=== PATIENT | female | born 1970 ===

== ENCOUNTER 2016-12-10 13:42 | Emergency (ER) | payer OTHER ==
--- NOTE | 2016-12-10 14:25 | ED ---
Bite Injury/Animal - HPI Summary HPI Summary: 46 female presents with complaints of a dog bite to her upper left leg that occurred yesterday while she was out for a run. She does not know the kind of dog. She states the dog was in a neighbors yard and is their dog. She called the animal control about the incident and dog will be tested for rabies. she is not interested in rabies prophylaxis here today. She arrives because she was told by the school nurse to come have it checked out. She states the area is very sore, bruised and there were 2 puncture wounds from the dogs teeth that appeared to have closed. No active bleeding. Denies numbness/tingling, loss of ROM, fever/chills, discharge, redness or edema. No other complaints at this time. No significant PMHx. Has not taken any medication for this. - History of Current Complaint Chief Complaint: EDAnimalBite Stated Complaint: DOG BITE Time Seen by Provider: 12/10/16 14:21 Hx Obtained From: Patient Onset of Injury: Happened days ago Type of Bite: Animal - dog Hx of Bite: Unprovoked Has Animal Been Immunized?: Yes - from what she was told, in process of speaking with animal control and determining rabies status. Severity Initially: Mild Severity Currently: Mild Pain Intensity: 1 Pain Scale Used: 0-10 Numeric Character: Puncture - 2 Aggravating Factor(s): Nothing Alleviating Factor(s): Nothing Associated Signs And Symptoms: Positive: Negative Animal Available for Observation: Yes Animal Control Notified: Yes - Allergies/Home Medications Allergies/Adverse Reactions: Allergies Allergy/AdvReac Type Severity Reaction Status Date / Time Sulfamethoxazole Allergy Rash Verified 12/10/16 15:19 w/Trimethoprim [From Bactrim] PMH/Surg Hx/FS Hx/Imm Hx Endocrine/Hematology History: Denies: Hx Anemia Cardiovascular History: Denies: Hx Hypertension Respiratory History: Denies: Hx Asthma Musculoskeletal History: Denies: Hx Rheumatoid Arthritis, Hx Osteoporosis - Cancer History Hx Chemotherapy: No Hx Radiation Therapy: No - Immunization History Date of Tetanus Vaccine: > 5 years, will be updated Immunizations Up to Date: Yes Infectious Disease History: No Infectious Disease History: Denies: Traveled Outside the [place] in Last 30 Days - Family History Known Family History: Positive: None - Social History Alcohol Use: Rare Substance Use Type: Reports: None Smoking Status (MU): Never Smoked Tobacco Review of Systems Constitutional: Negative Cardiovascular: Negative Respiratory: Negative Gastrointestinal: Negative Positive: Myalgia - upper left leg. Negative: Arthralgia, Decreased ROM, Edema Positive: Bruising - with 2 puncture wounds of upper left leg, from bite wound Neurological: Negative Psychological: Normal All Other Systems Reviewed And Are Negative: Yes Physical Exam Triage Information Reviewed: Yes Vital Signs On Initial Exam: Initial Vitals Temp Pulse Resp BP Pulse Ox 98.2 F 79 18 113/71 100 12/10/16 13:44 12/10/16 13:44 12/10/16 13:44 12/10/16 13:44 12/10/16 13:44 Vital Signs Reviewed: Yes Appearance: Positive: Well-Appearing, No Pain Distress, Well-Nourished Skin: Positive: Warm, Skin Color Reflects Adequate Perfusion, Dry, Erythema @ - left posterior, lateral proximal leg of hamstring. ecchymosis, minimal swelling , 2 puncture wounds appear to be healing approximately 4cm apart. No other lacerations or wounds noted. no discharge, active bleeding or red streaks noted. does not appear infected at this time. tender to palpation. no tendon, muscle exposure. Head/Face: Positive: Normal Head/Face Inspection Eyes: Positive: Normal, Conjunctiva Clear ENT: Positive: Normal ENT inspection, Hearing grossly normal Neck: Positive: Supple, Nontender, No Lymphadenopathy Respiratory/Lung Sounds: Positive: Clear to Auscultation, Breath Sounds Present Cardiovascular: Positive: Normal, RRR, Pulses are Symmetrical in both Upper and Lower Extremities - 2+ pedal pulses bilaterally, sensation intact. Abdomen Description: Positive: Nontender Musculoskeletal: Positive: Normal, Strength/ROM Intact, Pain @ - tenderness on palpation of bite wound of upper left leg. Negative: Limited @, Interruption @ , Edema Left, Edema Right Neurological: Positive: Normal, Sensory/Motor Intact, Alert, Oriented to Person Place, Time, CN Intact II-III, Reflexes Intact, NV Bundle Intact Distally, Normal Gait Psychiatric: Positive: Normal, Affect/Mood Appropriate Diagnostics - Vital Signs Vital Signs Temp Pulse Resp BP Pulse Ox 12/10/16 13:44 98.2 F 79 18 113/71 100 - Laboratory Lab Statement: Any lab studies that have been ordered have been reviewed, and results considered in the medical decision making process. Bite Injury Course/Dx - Course Course Of Treatment: puncture wounds were irrigated with 100cc of saline mixed with lidocaine. patient denied dressing at this time. given prophylactic antibiotics. stressed importance of following up with rabies vaccine depending on results from animal control. due to PE findings and history no need for x- ray to rule out fracture at this time. Tetanus was updated. Did not want any pain management at this time as she felt fine. aware of worsening signs and symptoms to watch out for, infection/compartment syndrome etc. - Diagnoses Differential Diagnosis/HQI/PQRI: Positive: Compartment Syndrome, Laceration, Puncture, Rabies Exposure, Superficial Infection, Deep Space Infection Provider Diagnosis: Dog bite of left lower leg, Puncture wound, lower leg Discharge - Discharge Plan Condition: Stable Disposition: HOME Prescriptions: Amoxicillin/Clavulanate TAB* [Augmentin TAB 875*] 875 mg PO BID #20 tab Patient Education Materials: Animal Bite (ED) Referrals: Madai Gould NP [Primary Care Provider] - Additional Instructions: Take prescribed antibiotic as directed to prevent infection x 10 days. Recommend taking probiotic pill or eating su[place]ese yogurt in between doses to replenish normal bren. Keep area clean and dry, you may use OTC triple antibiotic ointment as needed. Take OTC ibuprofen for pain and inflammation. Please be sure to follow up with animal ghotra about rabies vaccine as this is very important. Watch for signs and symptoms of infection such as worsening redness, discharge, fever/chills, swelling and hot to touch. Follow up with primary care provider to ensure proper healing.
[2016-12-10] MEDS ORDERED: Tetan/Diph/Pertus SYR(Tdap)* 0.5 ML SYR(BOOSTRIX) use SYR IM ONE (15:11)
[2016-12-10 15:32] VITALS: BP 115/76
== END 2016-12-10 15:31 | disposition home or self-care (01) ==
LOC: ED 13:42
DX: S81.852A Open bite, left lower leg, initial encounter (principal); W54.0XXA Bitten by dog, initial encounter; Y93.89 Activity, other specified; Y92.89 Other specified places as the place of occurrence of the external cause
CPT/HCPCS: 90471; 90715; 99282